=== PATIENT | female | born 1955 | race Caucasian/White ===

== ENCOUNTER 2020-06-03 09:09 | Emergency (ER) | payer MEDICARE ==
[~2020-06-03] VITALS: Ht 165.1 cm; Wt 60.8 kg
== END 2020-06-03 09:30 | disposition home or self-care (01) ==
LOC: ED 09:09
DX: L02.411 Cutaneous abscess of right axilla (principal)

== ENCOUNTER 2020-06-11 05:35 | Day surgery (SDC) | payer MEDICARE ==
[~2020-06-11] VITALS: Ht 162.6 cm; Wt 59.1 kg
[~2020-06-11 05:35] MED LIST: HAIR, SKIN &66.7 MCG PO; MENEST0.3 MG PO; MULTI VITAMIN1 EACH PO
--- NOTE | 2020-06-11 06:21 | NUR ---
[facility] RAPID COVID TEST DONE PER ORDER. COVID TEST COLLECTED FROM BOTH NARES W/O ISSUE. PT TOLERATED WELL.
--- NOTE | 2020-06-11 11:34 | NUR ---
PT USES CALL LIGHT TO NOTIFY DS STAFF OF URGE TO VOID. IV SALINE LOCKED AND PT ASSISTED TO BATHROOM. PT BACK TO DS RM 4, IV RUNNING CONT AND CALL LIGHT WITHIN REACH.
--- NOTE | 2020-06-11 14:10 | NUR ---
06/11/20 1410 Toshia Dougherty 1338 PT ARRIVED IN PACU NON RESPONSIVE TO NOXIOUS STIMULI WITH OPA IN PLACE. CHIN LIFT HELD. 1355 PT RESPONSIVE. OPA REMOVED. 1400 OXYGEN REMOVED. SATS 90-95% ON RA. SITTING UP IN BED SIPPING ON WATER.
--- NOTE | 2020-06-11 15:26 | NUR ---
PT LAYING IN BED ALERT, SPEAKS VERY ABRUPTLY. MOSTLY ONE WORD ANSWERS, PT THANKED ME, GAVE BLESSING. WILL FOLLOW
[2020-06-11] MEDS ORDERED: NORCO 10-325 T1 EACH PO (15:31)
--- NOTE | 2020-06-11 16:04 | NUR ---
LE 1545: PATIENT IS UP TO THE BATHROOM WITH MY STANDBY ASSIST. PATIENT AMBULATES WELL AND REPORTS SUCCESSFUL VOID. PATIENT AMBULATES BACK TO HER ROOM. DISCHARGE INSTRUCTIONS ARE GIVEN AND SHE VERBALIZES UNDERSTANDING. PATIENT IS GETTING DRESSED. SHE TRANSFERS HERSELF TO THE WHEELCHAIR AND THEN TO PERSONAL VEHICLE AND SHE TOLERATES THAT WELL.
--- NOTE | 2020-06-12 08:05 | OR ---
[facility] [address], [place] [address] Signed DATE OF OPERATION: 06/11/2020 SURGEON: Negrito Lopez MD PREOPERATIVE DIAGNOSIS: Right axillary skin lesion (5 cm). POSTOPERATIVE DIAGNOSIS: Right axillary skin lesion (5 cm). PROCEDURES: 1. Excision of right axillary skin lesion. 2. Axillary drain placement. ESTIMATED BLOOD LOSS: None. FINDINGS: Munira's lesion is most clinically consistent with hidradenitis suppurativa. INDICATIONS: Munira is a 65-year-old female, asked to see me for a 5 cm wide right axillary skin lesion; it is most clinically consistent with hidradenitis suppurativa, but it could be something else as well. She thinks it has only been there a couple of weeks. She squeezed a couple of times and said it was so painful. She just could not pursue that any significant degree. She had been to her primary care provider. Some antibiotics been called and she felt they were too expensive, so she never picked them up. She was asked to see me with respect to the above. In the office, we send in Bactrim for her and she went pick that up and started that. We got her into the operating room, so we could excise this area. I explained to her all, appears to be involving the skin and the underlying structures. Our hope was to close that primarily, most likely she would need an axillary drain. I reviewed with her the nature of the radial incision, that would come from the arm through the axilla and toward the breast, removed that entire lesion full thickness and gave her the best mobility of that shoulder. She understands there is risk to the surgery including, but not limited to bleeding, infection, scarring, change in contour of the skin as well as recurrent lesions in the same or other locations. She is also whether there could be the need for additional surgery based on pathology results. She had expressed understanding and wished to proceed. DESCRIPTION OF PROCEDURE: Electronically Signed By: NEGRITO LOPEZ MD 06/12/20 0805 PATIENT NAME: MUNIRA MEADE OPERATIVE REPORT DATE OF : 51 REPORT #: [id number] PHYSICIAN: NEGRITO LOPEZ MD PCP: GAY NINO PAC REPORT IS CONFIDENTIAL AND NOT TO BE RELEASED WITHOUT AUTHORIZATION [facility] [address] [place], [place] [address] Signed I met with Munira in our preoperative area. We marked that right axilla appropriately. After this, she was taken to the operating room and placed in the supine position under general anesthesia. She was given preoperative antibiotics along with subcutaneous heparin. SCDs were utilized. She was then prepped and draped in the usual sterile fashion. We hanna out an elliptical incision, starting on her medial upper right arm, that traveled through the axilla and toward the lateral aspect of the breast; this was developed sharply with a #20 blade knife. Cautery was then used to excise the skin full-thickness with some of the underlying adipose tissue. Again, this lesion is confined to the skin. The lesion was then appropriately marked and passed off the field. We had taken cultures of the lesion as well including fungal cultures. We then placed a #7 flat Zenon drain in the axilla and brought it out inferiorly below the inframammary crease. It was held in place to the level skin with 2-0 nylon suture. The dermis was then carefully reapproximated with multiple interrupted 3-0 subcuticular Monocryl sutures. We did have to free up some of the skin on the medial aspect of the arm and posteriorly lateral to the latissimus as well, that allowed us to bring the skin together without any undue tension. The skin edges were then reapproximated with a running 5-0 fast absorbing plain gut suture. Dry gauze and tape had been applied. She had been awakened from anesthesia, extubated in the OR, and taken to recovery room in stable condition. Negrito Lopez MD ALB/MODL /[id number] cc: MD PROSPER Olivera, Physician Doorshaker Copies: NEGRITO LOPEZ MD ~ Electronically Signed By: NEGRITO LOPEZ MD 06/12/20 0805 PATIENT NAME: MUNIRA MEADE OPERATIVE REPORT DATE OF : 51 REPORT #: [id number] PHYSICIAN: NEGRITO LOPEZ MD PCP: GAY NINO PAC REPORT IS CONFIDENTIAL AND NOT TO BE RELEASED WITHOUT AUTHORIZATION
--- NOTE | 2020-06-18 13:47 | PATH ---
[facility] [address] [place], [place] [address] Signed SPECIMEN(S): A RIGHT AXILLARY LESIONS SPECIMEN SOURCE: A. RIGHT AXILLARY LESIONS CLINICAL HISTORY: Excise right axillary skin lesions (long lateral, double medial, short superior). FINAL PATHOLOGIC DIAGNOSIS: Skin, right axilla, excision: - Epidermal ulceration with associated exuberant dermal mixed inflammation with abscess formation and giant cell reaction. - See Comment. COMMENT: Sections demonstrate exuberant dermal mixed inflammation with abundant plasma cells, lymphocytes, and eosinophils extending from the dermis into the subcutaneous tissue. Areas of abscess formation and foreign body type giant cells are present, but no polarizable foreign material, dermal-based cyst, or vasculitis is seen. The epidermis overlying the inflammation is ulcerated. The findings are non-specific and could represent inflammation secondary to infection, hidradenitis, or a previously ruptured dermal cyst. As part of [facility]' Quality Improvement Program, this case was reviewed by another member of our pathology staff ([email or web address]). NAL:cml:C2NR MICROSCOPIC EXAMINATION: Histologic sections of all submitted blocks are examined by light microscopy. These findings, together with the gross examination, support the pathologic diagnosis. GROSS DESCRIPTION: The specimen, labeled "KD," and designated on the requisition "right axillary lesions (long = lateral, double = medial, short = superior)," is received in formalin and consists of an oriented skin ellipse (13.0 cm medial to lateral, 6.2 cm superior to inferior, and excised to a depth of 1.2 cm) with brown-corral, nodular to ulcerated lesion on the epidermal surface (5.0 x 4.5 x 1.2 cm). The lateral tip is designated 12 o'clock (medial at 6 o'clock tip, superior at 4 PATIENT NAME: MUNIRA MEADE PATHOLOGY DATE OF : 51 REPORT #: [id number] PHYSICIAN: KELBY PATHOLOGY PCP: GAY NINO PAC REPORT IS CONFIDENTIAL AND NOT TO BE RELEASED WITHOUT AUTHORIZATION [facility] [address] [place], [place] [address] Signed o'clock) and the specimen is inked as follows: Blue = 12 o'clock to 3 o'clock [place] = 3 o'clock to 6 o'clock Green = 6 o'clock to 9 o'clock Red = 9 o'clock to 12 o'clock Black = deep The specimen is serially sectioned from 12 o'clock to 6 o'clock to reveal a brown-corrla to yellow-corral, firm area and ill-defined cut surface of the lesion. The lesion/firm area is grossly 0.6 cm from the nearest (3 o'clock) margin, and 0.5 cm to the deep margin. The remaining cut surface shows yellow-corral fatty tissue. The lesion is at least 1 cm from the remaining margins. Buying Agent sections are submitted as follows: Cassette Summary: (A1) Closest, 3 o'clock margin (A2-A4) Lesion/firm area to deep margin (A5) Lesion to 9 o'clock (A6) Lesion to uninvolved (11 o'clock) AC (under the direct supervision of a pathologist) The Gross Description was prepared using a voice recognition system. The report was reviewed for accuracy; however, sound-alike word errors, addition and/or deletions may occur. If there is any question about this report, please contact Client Services. PERFORMING LABORATORY: The technical component was performed by [facility], [address] [place] [id number] (Route Salesman And Driver: Maggie Hernandez MD; CLIA# [id number]). Professional interpretation was performed by [facility], [facility], [address] [place] [address] (CLIA# [id number]). Diagnostician: Rakel Camp MD Pathologist Electronically Signed 06/18/2020 Copies: ~ PATIENT NAME: MUNIRA MEADE PATHOLOGY DATE OF : 51 REPORT #: [id number] PHYSICIAN: KELBY CASTANEDA PCP: GAY NINO PAC REPORT IS CONFIDENTIAL AND NOT TO BE RELEASED WITHOUT AUTHORIZATION
== END 2020-06-11 15:50 | disposition home or self-care (01) ==
LOC: OPS 05:35 → DS 05:35 → OPS 11:00 → DS 12:00 → OPS 15:50
PROVIDERS: ATTEND Colon & Rectal Surgery
PROC: 0HBBXZZ Excision of Right Upper Arm Skin, External Approach (ICD-10-PCS; principal; 2020-06-11 11:00)
DX: L98.499 Non-pressure chronic ulcer of skin of other sites with unspecified severity (principal); L02.411 Cutaneous abscess of right axilla; F17.210 Nicotine dependence, cigarettes, uncomplicated; Z79.899 Other long term (current) drug therapy; Z88.0 Allergy status to penicillin; Z88.8 Allergy status to other drugs, medicaments and biological substances; Z20.828 Contact with and (suspected) exposure to other viral communicable diseases
CPT/HCPCS: 87070; 87075; 87077; 87186; 87205; 88304; 88305; C9803; J1100; J1644; J1885; J2001; J2370; J2405; J2704; J3010; J7121; U0003